=== PATIENT | male | born 1980 | race Caucasian/White ===

== ENCOUNTER 2021-06-11 08:23 | Day surgery (SDC) | payer BC ==
[~2021-06-11] VITALS: Ht 193 cm; Wt 269.0 kg
[~2021-06-11 08:23] MED LIST: HYDROmorphone 2 MG/ML VIAL IVP PRN; PROCHLORPERAZINE 10 MG/2 ML VIAL. IVP PRN; ceFAZolin SODIUM 3 GM in IV DEXTROSE 5% 100ML 100 ML IV PRN; fentaNYL PF VIAL 100 MCG/2 ML VIAL IVP PRN
[2021-06-11] MEDS: IV RINGERS,LACTATED 1000ML 1,000 ML IV SCH ×2 (08:53→11:58)
[2021-06-11] MEDS ORDERED: INDO75CA3 PO (09:13)
[2021-06-11] MEDS ORDERED: INDO50CA15 PO (09:13)
[2021-06-11] MEDS ORDERED: MIDAZOLAM HCL/PF 2 MG/2 ML VIAL. ONE (09:37)
[2021-06-11] MEDS ORDERED: ROCURONIUM 50 MG/5 ML VIAL. ONE (09:38)
[2021-06-11] MEDS ORDERED: PROPOFOL 10 MG/ML (20ML) VIAL. IV ONE (09:38)
[2021-06-11] MEDS ORDERED: fentaNYL PF VIAL 250 MCG/5 ML VIAL ONE (09:38)
[2021-06-11] MEDS ORDERED: LIDOCAINE 1% PF 5 ML VIAL. ONE (09:38)
[2021-06-11] MEDS ORDERED: ONDANSETRON PF 4 MG/2 ML VIAL. ONE (09:40)
[2021-06-11] MEDS ORDERED: BUPIVACAINE-EPI 0.5%-1:200000 MPF 30 ML VIAL. ONE (09:40)
[2021-06-11] MEDS ORDERED: GLYCOPYRROLATE 1 MG/5 ML VIAL. ONE (09:40)
[2021-06-11] MEDS ORDERED: NEOSTIGMINE METHYLSULFATE 5 MG/5 ML SYRINGE. ONE (09:41)
[2021-06-11] MEDS ORDERED: PHENYLEPHRINE in 0.9% NACL PF 1 MG/10 ML SYRINGE. IV ONE (09:42)
[2021-06-11] MEDS ORDERED: SUCCINYLCHOLINE 200 MG/10 ML VIAL. ONE (09:42)
[2021-06-11] MEDS ORDERED: DEXAMETHASONE SOD PHOS 4 MG/ML VIAL ONE (10:03)
[2021-06-11] MEDS ORDERED: KETOROLAC 30 MG/ML VIAL. ONE (10:03)
[2021-06-11] MEDS ORDERED: HYDROmorphone 2 MG/ML VIAL ONE (10:45)
[2021-06-11] MEDS ORDERED: SEVOFLURANE 61 TO 120 MINUTES. IH ONE (11:11)
--- NOTE | 2021-06-11 12:04 | PDOC4 ---
Operative Note Operative Note Operative Note: Preoperative Diagnosis: Umbilical hernia Postoperative Diagnosis: Same Procedure: Umbilical hernia repair with mesh Surgeon: Eloy Improvement Lead: Claritza JOHNSON Anesthesia: General EBL: 10 mL Specimen: None Drains: None Complications: None Indication: The patient is a 41-year-old male who was referred due to a sizable umbilical hernia. He was offered surgical treatment. The risks of surgery were discussed which include bleeding, infection, recurrence, pain, anesthetic risk, potential need for additional surgery procedure. He understands and would like to proceed. Description: The patient was taken to the operating room and placed supine in the operating table. General anesthesia was performed. The abdomen was prepped with ChloraPrep and draped with sterile towels, sheets, and an Ioban. A curved infraumbilical incision was made in the skin with a scalpel. Cautery dissection was carried down to the fascia. The umbilical tissue was elevated off exposing a sizable hernia defect and the redundant sac. Portions of the hernia sac were excised. The sac was then oversewn with 2-0 Vicryl. A preperitoneal plane was then developed using primarily blunt dissection circumferentially around the defect. A large Ventralex ST mesh was then placed in this preperitoneal plane. The mesh was sutured into position at the 12, 3, 6, 9:00 locations with 0 Prolene in a horizontal mattress fashion. The fascial edges were closed over the mesh with 0 Prolene. The umbilicus was secured back to the fascia with 0 Vicryl. The subcutaneous tissue was closed with 3-0 Vicryl. The skin was closed with 4-0 Monocryl and infiltrated with half percent Marcaine with epinephrine. Steri-Strips and a sterile dressing were applied. The patient tolerated the procedure well and was sent to the recovery room in stable c ondition. At the end of the case all counts were correct. KUMAR CALIXTO MD Jun 11, 2021 12:04
[2021-06-11] MEDS ORDERED: OXYC-325 PO (12:12)
--- NOTE | 2021-06-11 12:14 | DISCH ---
DISCHARGE INSTRUCTIONS Condition on Discharge Condition on Discharge: Unstable Activity After Discharge Activity Instructions for Disc: Other, see below (No lifting over 20 lbs X 4 weeks, no driving while taking pain meds) Diet after Discharge Diet after Discharge: Regular Wound Incision Care Wound/Incision Care: Other, see below (keep dressing clean and dry X 72 hours, may then remove and shower) Follow-Up Follow up with: Dr Calixto in office in 2 weeks, call for appointment [phone] KUMAR CALIXTO MD Jun 11, 2021 12:14
[2021-06-11] MEDS: MORPHINE SULFATE 2 MG/ML INJ. IVP PRN ×2 (12:36→12:46)
[2021-06-11] MEDS ORDERED: MORPHINE SULFATE 2 MG/ML INJ. ONE (12:43)
[2021-06-11] MEDS ORDERED: oxyCODONE/APAP 5/325 1 TAB TABLET PO ONE (13:00)
[2021-06-11 13:20] VITALS: BP 107/65
== END 2021-06-11 13:56 | disposition home or self-care (01) ==
LOC: SURG 08:23
PROVIDERS: ATTEND Surgery
DX: K42.9 Umbilical hernia without obstruction or gangrene (principal); M19.90 Unspecified osteoarthritis, unspecified site; E66.9 Obesity, unspecified; Z87.891 Personal history of nicotine dependence; Z98.890 Other specified postprocedural states
CPT/HCPCS: 49585; J0330; J1100; J1170; J1885; J2250; J2270; J2370; J2405; J2704; J2710; J3010; J3490; A4223; A4364; A4452; A4930; A6402; C1781